=== PATIENT | male | born 1990 | race African-American/Black ===

== ENCOUNTER 2017-07-27 14:35 | Emergency (ER) | payer SELFPAY ==
--- NOTE | 2017-07-27 16:10 | ER Document Report ---
ED General - General Chief Complaint: Toothache Stated Complaint: MOUTH PAIN Time Seen by Provider: 07/27/17 15:50 TRAVEL OUTSIDE OF THE [place] IN LAST 30 DAYS: No - HPI Patient complains to provider of: Dental pain Notes: Patient coming in for dental pain tooth #3 ongoing for the last 3 days. Patient states very sensitive to air. Denies any fevers chills nausea vomiting. Patient states pain is causing him to have a headache. - Related Data Allergies/Adverse Reactions: No Known Allergies Allergy (Verified 07/27/17 14:54) Past Medical History - Social History Smoking Status: Unknown if Ever Smoked Family History: Reviewed & Not Pertinent Review of Systems - Review of Systems Constitutional: No symptoms reported EENT: Other - Dental pain Cardiovascular: No symptoms reported Respiratory: No symptoms reported Gastrointestinal: No symptoms reported Genitourinary: No symptoms reported Male Genitourinary: No symptoms reported Musculoskeletal: No symptoms reported Skin: No symptoms reported Hematologic/Lymphatic: No symptoms reported Neurological/Psychological: No symptoms reported Physical Exam - Vital signs Vitals: Temp Pulse Resp BP Pulse Ox 98.6 F 63 14 119/63 99 07/27/17 14:54 07/27/17 14:54 07/27/17 14:54 07/27/17 14:54 07/27/17 14:54 Interpretation: Normal - General General appearance: Appears well, Alert - HEENT Head: Normocephalic, Atraumatic Eyes: Normal Pupils: PERRL Notes: Patient with a dental carry of tooth #3 - Respiratory Respiratory status: No respiratory distress Chest status: Nontender Breath sounds: Normal Chest palpation: Normal - Cardiovascular Rhythm: Regular Heart sounds: Normal auscultation Murmur: No - Abdominal Inspection: Normal Distension: No distension Bowel sounds: Normal Tenderness: Nontender Organomegaly: No organomegaly - Back Back: Normal, Nontender - Extremities General upper extremity: Normal inspection, Nontender, Normal color, Normal ROM , Normal temperature General lower extremity: Normal inspection, Nontender, Normal color, Normal ROM , Normal temperature, Normal weight bearing. No: Hailey's sign - Neurological Neuro grossly intact: Yes Cognition: Normal Orientation: AAOx4 [place] Coma Scale Eye Opening: Spontaneous [place] Coma Scale Verbal: Oriented Kayla Coma Scale Motor: Obeys Commands [place] Coma Scale Total: 15 Speech: Normal Motor strength normal: LUE, RUE, LLE, RLE Sensory: Normal - Psychological Associated symptoms: Normal affect, Normal mood - Skin Skin Temperature: Warm Skin Moisture: Dry Skin Color: Normal Course - Re-evaluation Re-evalutation: 07/27/17 18:42 No signs of drainable abscess patient be started on penicillin will give Naprosyn for pain control patient is to follow-up with dental clinics provided. - Vital Signs Vital signs: Temp Pulse Resp BP Pulse Ox 98.4 F 61 18 112/60 100 07/27/17 16:13 07/27/17 16:13 07/27/17 16:13 07/27/17 16:13 07/27/17 16:13 Discharge - Discharge Clinical Impression: Dentalgia Condition: Good Disposition: HOME, SELF-CARE Instructions: [facility], Dentist, Penicillin V K ([facility]), Toothache ([facility]) Additional Instructions: Take medication as prescribed. Return to the ER if symptoms worsen. You will need to follow-up with a dentist for further evaluation of your teeth and treatment of your dental pain. He may also take Tylenol for your pain also he may take [id number] Orajel for your pain. Prescriptions: Naproxen [Naprosyn 250 mg Tablet] 250 mg PO DAILY PRN #30 tablet PRN Reason: Penicillin V Potassium [Penicillin Vk 500 mg Tablet] 500 mg PO QID #28 tablet Forms: Return to Work
[2017-07-27 16:17] VITALS: BP 112/60
== END 2017-07-27 16:17 | disposition home or self-care (01) ==
LOC: ER 14:35
DX: K08.89 Other specified disorders of teeth and supporting structures (principal); R51 Headache
CPT/HCPCS: 99282